=== PATIENT | male | born 1960 | race Caucasian/White ===

== ENCOUNTER 2019-09-23 20:02 | Emergency (ER) | payer MEDICAID ==
[~2019-09-23] VITALS: Ht 182.9 cm; Wt 88.5 kg
[2019-09-23 20:15] VITALS: BP_SYST 167
[2019-09-23] MEDS ORDERED: BACITRACIN 1 GM OINT TP ONE (20:30)
[2019-09-23] MEDS ORDERED: DIPH-TET-PERTUS Vaccine 0.5 ML VIAL (ADACEL) I.M. ONE (20:30)
[2019-09-23] MEDS ORDERED: LIDOCAINE/EPI 1% 1:100000 20 ML VIAL INJ ONE ×2 (20:30→20:43)
[2019-09-23] MEDS ORDERED: HYDROcodone/ACETAMIN 7.5-325 MG TAB PO ONE (20:45)
[2019-09-23] MEDS ORDERED: ONDANSETRON 4 MG ODT TAB PO ONE (20:45)
[2019-09-23] MEDS ORDERED: LIDOCAINE 4% TOPICAL 50 ML BOTTLE MM ONE (20:45)
[2019-09-23 21:52] VITALS: BP_SYST 148
== END 2019-09-23 21:52 | disposition home or self-care (01) ==
LOC: SED 20:02
DX: S01.511A Laceration without foreign body of lip, initial encounter (principal); I10 Essential (primary) hypertension; W22.8XXA Striking against or struck by other objects, initial encounter; Y93.89 Activity, other specified; Y92.89 Other specified places as the place of occurrence of the external cause; Y99.8 Other external cause status
CPT/HCPCS: 12011; 90471; 90715; 99284; Q0162; 99283

== ENCOUNTER 2021-05-10 19:01 | Emergency (ER) | payer MEDICAID, SELFPAY ==
[2021-05-10 19:06] VITALS: BP_SYST 157
--- NOTE | 2021-05-10 19:06 | NUR ---
ER Dr. moore at bedside examining patient. seeing in WR
[2021-05-10 20:15] LABS: BASOPHILS % (AUTO) 0.6 % (0.0-2.0); EOSINOPHILS # (AUTO) 0.2 K/uL (0.0-0.4); EOSINOPHILS % (AUTO) 3.1 % (0.0-4.0); HEMATOCRIT 46.9 % (36-54); HEMOGLOBIN 15.8 g/dL (14.0-18.0); LYMPHOCYTES # (AUTO) 2.3 K/uL (1.0-5.5); LYMPHOCYTES % (AUTO) 31.6 % (20.5-51.5); MEAN CORPUSCULAR HEMOGLOBIN 29 pg (27-31); MEAN CORPUSCULAR HGB CONC 34 % (32-36); MEAN CORPUSCULAR VOLUME 85 fL (79.0-98.0); MONOCYTES # (AUTO) 0.5 K/uL (0.0-1.0); MONOCYTES % (AUTO) 7.1 % (1.7-9.3); NEUTROPHILS # (AUTO) 4.1 K/uL (1.8-7.7); NEUTROPHILS % (AUTO) 57.6 % (40.0-70.0); PLATELET COUNT (AUTO) 224 K/uL (130-430); RED BLOOD CELL COUNT(AUTO) 5.53 MIL/uL (4.2-6.2); WHITE BLOOD COUNT (AUTO) 7.2 K/uL (4.8-10.8)
[2021-05-10 20:49] LABS: ANION GAP 8 (5-15); CALCIUM 9.5 mg/dL (8.4-11.0); CHLORIDE 101 mmol/L (98-107); GLUCOSE 297 mg/dL (70-99); POTASSIUM 4.1 mmol/L (3.5-5.1); SODIUM SERUM 139 mmol/L (136-145); UREA NITROGEN, BLOOD 14 mg/dL (8-21)
[2021-05-10 20:54] LABS: ALANINE AMINOTRANSFERASE 51 U/L (12-78); ALBUMIN 3.8 g/dL (3.4-4.8); ASPARTATE AMINOTRANSFERASE 19 U/L (10-37); TOTAL BILIRUBIN 0.3 mg/dL (0.0-1.0)
[2021-05-10 20:59] LABS: GFR AFRICAN AMERICAN 99 mL/min (>90)
[2021-05-10 21:25] LABS: C-REACTIVE PROTEIN QUANT < 0.2 mg/dL (0-0.5)
[2021-05-10] MEDS ORDERED: CLIN300C12 PO (21:32)
[2021-05-10] MEDS ORDERED: IBUP-1971 PO (21:32)
[2021-05-10] MEDS ORDERED: ACYC-133 PO (21:34)
--- NOTE | 2021-05-10 21:45 | NUR ---
Patient given written and verbal discharge instructions and verbalizes understanding. ER MD discussed with patient the results and treatment provided. Patient in stable condition. ID arm band removed. Rx of ibuprofen, clindamycin, acyclorvir given. Patient educated on pain management and to follow up with PMD. Pain Scale 3. Opportunity for questions provided and answered. Medication side effect fact sheet provided.
== END 2021-05-10 21:45 | disposition home or self-care (01) ==
LOC: SED 19:01
DX: L98.8 Other specified disorders of the skin and subcutaneous tissue (principal); Z79.899 Other long term (current) drug therapy
CPT/HCPCS: 36415; 80053; 83605; 85025; 86140; 99283

== ENCOUNTER 2022-09-19 18:56 | Emergency (ER) | payer MEDICAID ==
[~2022-09-19] VITALS: Ht 172.7 cm; Wt 72.6 kg
[~2022-09-19 18:56] MED LIST: ACYC-133 PO; CLIN-142 PO; IBUP-1971 PO
[2022-09-19 19:02] VITALS: BP_SYST 172
[2022-09-19] MEDS ORDERED: DIPHTH,PERTUSS(ACELL),TET VAC 0.5 ML VIAL (Tdap) I.M. ONE (19:45)
[2022-09-19] MEDS ORDERED: KETOROLAC TROMETHAMINE 30 MG VIAL IM ONE (19:45)
[2022-09-19] MEDS ORDERED: HYDR-3917 PO (20:23)
[2022-09-19] MEDS ORDERED: CEPH-548 PO (20:25)
== END 2022-09-19 21:19 | disposition home or self-care (01) ==
LOC: SED 18:56
DX: S62.307A Unspecified fracture of fifth metacarpal bone, left hand, initial encounter for closed fracture (principal); E11.9 Type 2 diabetes mellitus without complications; Z79.899 Other long term (current) drug therapy; W29.4XXA Contact with nail gun, initial encounter; Y93.89 Activity, other specified; Y92.89 Other specified places as the place of occurrence of the external cause; Y99.8 Other external cause status
CPT/HCPCS: 99284; 73130; 90715; 96372; 90471; 29125; J1885